=== PATIENT | female | born 1965 ===

== ENCOUNTER 2017-10-08 14:21 | Emergency (ER) | payer MEDICAID ==
[2017-10-08 14:31] VITALS: BP 129/85; PULSE 97; RESP 20; TEMP 98.1; O2SAT 99
--- NOTE | 2017-10-08 15:03 | ED PDOC ---
HPI: CCC, URI, Sore Throat Time Seen by Provider: 10/08/17 14:24 Chief Complaint (Nursing): ENT Problem Chief Complaint (Provider): ENT Problem History Per: Patient, Family (daughter) History/Exam Limitations: language barrier (greenlandic) Onset/Duration Of Symptoms: Persistent (x3 weeks) Current Symptoms Are (Timing): Still Present Additional Complaint(s): 52 year old female presents to the emergency department with family for an evaluation of left ear pain associated tinnitus and feeling of drainage ongoing for 3 weeks. Denied taking any medication for relief or seeking evaluation by another physician prior to ED visit. PMD: none provided Past Medical History Reviewed: Historical Data, Nursing Documentation, Vital Signs Vital Signs: Last Vital Signs Temp 98.1 F 10/08/17 14:27 Pulse 97 H 10/08/17 14:27 Resp 20 10/08/17 14:27 BP 129/85 10/08/17 14:27 Pulse Ox 99 10/08/17 15:12 - Medical History PMH: Anxiety, Depression, Gastritis Denies: Chronic Kidney Disease - Surgical History Surgical History: No Surg Hx - Family History Family History: States: Unknown Family Hx - Social History Current smoker - smoking cessation education provided: No Alcohol: None Drugs: Denies - Immunization History Hx Tetanus Toxoid Vaccination: Yes Hx Influenza Vaccination: No Hx Pneumococcal Vaccination: No - Home Medications Home Medications: Ambulatory Orders Medication Instructions Recorded Benztropine [Cogentin] 0.5 mg PO HS PRN #30 tab 05/04/16 Mirtazapine [Remeron] 30 mg PO HS #60 tab 05/04/16 Sertraline [Zoloft] 100 mg PO DAILY #60 tab 05/04/16 risperiDONE [RisperDAL Tab] 1 mg PO HS #30 tab 05/04/16 traZODone [Desyrel] 50 mg PO HS PRN #30 tab 05/04/16 Methylprednisolone [Medrol Dose 4 mg PO DAILY #21 mg 05/18/16 Pack (21 tabs)] Promethazine HCl/Codeine 5 ml PO HS #80 ml 05/18/16 [Prometh-Codein 6.25-10 mg/5 ml] Famotidine [Pepcid] 20 mg PO BID #20 tab 05/19/16 Fluticasone Nasal [Flonase] 1 actuation NS BID #1 bottle 05/19/16 Guaifenesin/Pseudoephedrne HCl 1 - 2 tab PO BID #20 ter 05/19/16 [Mucinex D 600 mg-60 mg] Fluticasone Nasal [Flonase] 0.05 mg NS DAILY #1 spr 10/31/16 Loratadine/Pseudoephedrine 1 each PO DAILY #20 tab.er.24h 10/31/16 [Claritin-D 24 Hour Tablet] Amoxicillin 875 mg PO BID #20 tab 10/08/17 - Allergies Allergies/Adverse Reactions: Allergies Allergy/AdvReac Type Severity Reaction Status Date / Time No Known Allergies Allergy Verified 05/18/16 13:39 Review of Systems ROS Statement: Except As Marked, All Systems Reviewed And Found Negative ENT: Positive for: Ear Pain (left-sided), Ear Discharge (left-sided), Other ( tinnitus) Physical Exam - Reviewed Nursing Documentation Reviewed: Yes Vital Signs Reviewed: Yes - Physical Exam Appears: Positive for: No Acute Distress Head Exam: Positive for: ATRAUMATIC, NORMAL INSPECTION, NORMOCEPHALIC Skin: Positive for: Normal Color. Negative for: Pallor Eye Exam: Positive for: Normal appearance, EOMI, PERRL ENT: Positive for: Normal ENT Inspection, TM Is/Are (clear in left ear). Negative for: Other (left ear erythema or edema) Neurologic/Psych: Positive for: Alert, Oriented - ECG O2 Sat by Pulse Oximetry: 99 (RA) Pulse Ox Interpretation: Normal Medical Decision Making Medical Decision Making: Initial Impression: Ear pain Time: 1507 --Upon provider evaluation, patient is medically stable and requires no further treatment in the ED at this time. Patient will be discharged home with Rx for Augmentin 875mg. Counseling was provided and all questions were answered regarding diagnosis and need for follow up with ENT specialists. There is agreement to discharge plan. Return if symptoms persist or worsen. Clinical Impression: Left ear pain Scribe Attestation: Documented by Zully Paz, acting as a scribe for Michelle Sprague PA-C. Provider Scribe Attestation: All medical record entries made by the Scribe were at my direction and personally dictated by me. I have reviewed the chart and agree that the record accurately reflects my personal performance of the history, physical exam, medical decision making, and the department course for this patient. I have also personally directed, reviewed, and agree with the discharge instructions and disposition. Disposition - Clinical Impression Clinical Impression: Left ear pain - Patient ED Disposition Is Patient to be Admitted: No Counseled Patient/Family Regarding: Diagnosis, Need For Followup - Disposition Referrals: Inder Deutsch MD [Staff Provider] - Emmett Russell MD [Staff Provider] - FAMILY PROVIDER,NO [Primary Care Provider] - Disposition: Routine/Home Disposition Time: 15:07 Condition: STABLE Prescriptions: Amoxicillin 875 mg PO BID #20 tab Forms: [employer] (Malian), [facility] ED School/Work Excuse Print Language: TURKMEN
== END 2017-10-08 15:12 | disposition home or self-care (01) ==
LOC: SUPCPDRO 14:21 → H.ER 14:21
DX: H92.02 Otalgia, left ear (principal); F32.9 Major depressive disorder, single episode, unspecified; F41.9 Anxiety disorder, unspecified

== ENCOUNTER 2018-03-16 14:37 | Emergency (ER) | payer SELFPAY ==
[2018-03-16 14:45] VITALS: BMI 34.3
--- NOTE | 2018-03-16 15:13 | ED PDOC ---
HPI: General Adult Time Seen by Provider: 03/16/18 14:53 Chief Complaint (Nursing): ENT Problem Chief Complaint (Provider): ENT Problem History Per: Patient History/Exam Limitations: no limitations Onset/Duration Of Symptoms: Days (x2) Current Symptoms Are (Timing): Still Present Additional Complaint(s): 52 year old female presents to the ED for evaluation of frontal sinus pain and pressure, and the sensation of clogged bilateral ears for the last two days. Patient otherwise denies fever, chills, cough, and sore throat. PMD: none provided Past Medical History Reviewed: Historical Data, Nursing Documentation, Vital Signs Vital Signs: Last Vital Signs Temp 98.5 F 03/16/18 14:45 Pulse 93 H 03/16/18 14:45 Resp 20 03/16/18 14:45 BP 115/79 03/16/18 14:45 Pulse Ox 98 03/16/18 15:25 - Medical History PMH: Anxiety, Depression, Gastritis Denies: Chronic Kidney Disease - Surgical History Surgical History: No Surg Hx - Family History Family History: States: Unknown Family Hx - Immunization History Hx Tetanus Toxoid Vaccination: Yes Hx Influenza Vaccination: No Hx Pneumococcal Vaccination: No - Home Medications Home Medications: Ambulatory Orders Medication Instructions Recorded Benztropine [Cogentin] 0.5 mg PO HS PRN #30 tab 05/04/16 Mirtazapine [Remeron] 30 mg PO HS #60 tab 05/04/16 Sertraline [Zoloft] 100 mg PO DAILY #60 tab 05/04/16 risperiDONE [RisperDAL Tab] 1 mg PO HS #30 tab 05/04/16 traZODone [Desyrel] 50 mg PO HS PRN #30 tab 05/04/16 Methylprednisolone [Medrol Dose 4 mg PO DAILY #21 mg 05/18/16 Pack (21 tabs)] Promethazine HCl/Codeine 5 ml PO HS #80 ml 05/18/16 [Prometh-Codein 6.25-10 mg/5 ml] Famotidine [Pepcid] 20 mg PO BID #20 tab 05/19/16 Fluticasone Nasal [Flonase] 1 actuation NS BID #1 bottle 05/19/16 Guaifenesin/Pseudoephedrne HCl 1 - 2 tab PO BID #20 ter 05/19/16 [Mucinex D 600 mg-60 mg] Fluticasone Nasal [Flonase] 0.05 mg NS DAILY #1 spr 10/31/16 Loratadine/Pseudoephedrine 1 each PO DAILY #20 tab.er.24h 10/31/16 [Claritin-D 24 Hour Tablet] Amoxicillin 875 mg PO BID #20 tab 10/08/17 Carbamide Peroxide [Debrox] 15 ml OT BID #1 drops 03/16/18 Methylprednisolone [Medrol Dose 4 mg PO DAILY #21 mg 03/16/18 Pack (21 tabs)] - Allergies Allergies/Adverse Reactions: Allergies Allergy/AdvReac Type Severity Reaction Status Date / Time No Known Allergies Allergy Verified 05/18/16 13:39 Review of Systems ROS Statement: Except As Marked, All Systems Reviewed And Found Negative Constitutional: Negative for: Fever, Chills ENT: Positive for: Nose Pain (frontal sinus pain and pressure), Other (clogged sensation to bilateral ears). Negative for: Throat Pain Respiratory: Negative for: Cough Physical Exam - Reviewed Nursing Documentation Reviewed: Yes Vital Signs Reviewed: Yes - Physical Exam Appears: Positive for: No Acute Distress Head Exam: Positive for: ATRAUMATIC, NORMOCEPHALIC Skin: Positive for: Normal Color, Warm, Dry Eye Exam: Positive for: Normal appearance ENT: Positive for: TM Is/Are (left TM: not visualized due to cerumen impaction; right TM: unremarkable), Sinus Pain/Drainage (frontal and ethmoid sinus tenderness). Negative for: Pharyngeal Erythema, Tonsillar Swelling Neck: Positive for: Normal, Painless ROM, Supple Cardiovascular/Chest: Positive for: Regular Rate, Rhythm Respiratory: Positive for: Normal Breath Sounds. Negative for: Accessory Muscle Use, Respiratory Distress Neurologic/Psych: Positive for: Alert, Oriented (x3). Negative for: Motor/ Sensory Deficits - ECG O2 Sat by Pulse Oximetry: 98 (RA) Pulse Ox Interpretation: Normal Medical Decision Making Medical Decision Making: Time: 1514 Initial Impression: sinusitis, cerumen impaction Initial Plan: --At this time, patient requires no treatment in the ED. Scribe Attestation: Documented by Destinee Duckworth, acting as a scribe for Heike Villanueva PA-C. Provider Scribe Attestation: All medical record entries made by the Scribe were at my direction and personally dictated by me. I have reviewed the chart and agree that the record accurately reflects my personal performance of the history, physical exam, medical decision making, and the department course for this patient. I have also personally directed, reviewed, and agree with the discharge instructions and disposition. Disposition - Clinical Impression Clinical Impression: Sinusitis, Cerumen impaction - Patient ED Disposition Is Patient to be Admitted: No - Disposition Disposition: Routine/Home Disposition Time: 15:29 Condition: STABLE Prescriptions: Carbamide Peroxide [Debrox] 15 ml OT BID #1 drops Methylprednisolone [Medrol Dose Pack (21 tabs)] 4 mg PO DAILY #21 mg Instructions: Sinusitis in Adults, Ear Wax Impaction Forms: [employer] (Cameroonian) Print Language: ARMENIAN
[2018-03-16 17:35] VITALS: BP 122/70; PULSE 78; RESP 18; TEMP 98.1; O2SAT 100
== END 2018-03-16 17:34 | disposition home or self-care (01) ==
LOC: H.ER 14:37
DX: J32.9 Chronic sinusitis, unspecified (principal); H61.22 Impacted cerumen, left ear; F41.9 Anxiety disorder, unspecified; F32.9 Major depressive disorder, single episode, unspecified

== ENCOUNTER 2018-06-13 12:10 | Emergency (ER) | payer MEDICAID ==
[2018-06-13 12:10] VITALS: BMI 34.3
[2018-06-13 12:20] VITALS: RESP 18
--- NOTE | 2018-06-13 13:22 | ED PDOC ---
HPI: General Adult Time Seen by Provider: 06/13/18 13:20 Chief Complaint (Nursing): ENT Problem Chief Complaint (Provider): Left Earache History Per: Patient History/Exam Limitations: no limitations Onset/Duration Of Symptoms: Days (x3) Current Symptoms Are (Timing): Still Present Additional Complaint(s): 53 year old female with PMH anxiety presents to the ED for evaluation of a left sided earache for three days after water being exposed to the ear and "getting stuck", per patient. Reports taking Tylenol with no relief, last dose 0800 this morning. Otherwise, denies other complaints, changes in hearing, tinnitus, vertigo fever, chills, headache, sore throat, dizziness, vision changes N/V, and abdominal pain. PMD: none provided Past Medical History Reviewed: Historical Data, Nursing Documentation, Vital Signs Vital Signs: Last Vital Signs Temp 98.4 F 06/13/18 12:19 Pulse 101 H 06/13/18 12:19 Resp 18 06/13/18 12:19 BP 139/91 H 06/13/18 12:19 Pulse Ox 96 06/13/18 12:19 - Medical History PMH: Anxiety, Depression, Gastritis Denies: Chronic Kidney Disease - Surgical History Surgical History: No Surg Hx - Family History Family History: States: Unknown Family Hx - Social History Current smoker - smoking cessation education provided: Yes (light) Alcohol: None Drugs: Denies - Immunization History Hx Tetanus Toxoid Vaccination: Yes Hx Influenza Vaccination: No Hx Pneumococcal Vaccination: No - Home Medications Home Medications: Ambulatory Orders Medication Instructions Recorded Benztropine [Cogentin] 0.5 mg PO HS PRN #30 tab 05/04/16 Mirtazapine [Remeron] 30 mg PO HS #60 tab 05/04/16 Sertraline [Zoloft] 100 mg PO DAILY #60 tab 05/04/16 risperiDONE [RisperDAL Tab] 1 mg PO HS #30 tab 05/04/16 traZODone [Desyrel] 50 mg PO HS PRN #30 tab 05/04/16 Methylprednisolone [Medrol Dose 4 mg PO DAILY #21 mg 05/18/16 Pack (21 tabs)] Promethazine HCl/Codeine 5 ml PO HS #80 ml 05/18/16 [Prometh-Codein 6.25-10 mg/5 ml] Famotidine [Pepcid] 20 mg PO BID #20 tab 05/19/16 Fluticasone Nasal [Flonase] 1 actuation NS BID #1 bottle 05/19/16 Guaifenesin/Pseudoephedrne HCl 1 - 2 tab PO BID #20 ter 05/19/16 [Mucinex D 600 mg-60 mg] Fluticasone Nasal [Flonase] 0.05 mg NS DAILY #1 spr 10/31/16 Loratadine/Pseudoephedrine 1 each PO DAILY #20 tab.er.24h 10/31/16 [Claritin-D 24 Hour Tablet] Amoxicillin 875 mg PO BID #20 tab 10/08/17 Carbamide Peroxide [Debrox] 15 ml OT BID #1 drops 03/16/18 Methylprednisolone [Medrol Dose 4 mg PO DAILY #21 mg 03/16/18 Pack (21 tabs)] Ofloxacin Otic 0.3% [Floxin 0.3% 10 drop TOP DAILY 7 Days #1 bottle 06/13/18 Otic Soln] - Allergies Allergies/Adverse Reactions: Allergies Allergy/AdvReac Type Severity Reaction Status Date / Time No Known Allergies Allergy Verified 06/13/18 12:19 Review of Systems ROS Statement: Except As Marked, All Systems Reviewed And Found Negative Constitutional: Negative for: Fever, Chills Eyes: Negative for: Vision Change ENT: Positive for: Ear Pain (left). Negative for: Nose Pain, Nose Discharge, Nose Congestion, Mouth Pain, Mouth Swelling, Throat Pain, Throat Swelling Cardiovascular: Negative for: Chest Pain, Palpitations Respiratory: Negative for: Cough, Shortness of Breath Gastrointestinal: Negative for: Abdominal Pain Musculoskeletal: Negative for: Neck Pain, Shoulder Pain, Arm Pain Skin: Negative for: Rash Neurological: Negative for: Weakness, Numbness, Headache, Dizziness Psych: Positive for: Anxiety Physical Exam - Reviewed Nursing Documentation Reviewed: Yes Vital Signs Reviewed: Yes - Physical Exam Appears: Positive for: No Acute Distress Head Exam: Positive for: ATRAUMATIC, NORMOCEPHALIC Skin: Positive for: Normal Color, Warm, Dry Eye Exam: Positive for: Normal appearance ENT: Positive for: Pharynx Is (unremarkable), TM Is/Are (normal), Hearing Is (intact), Other (tenderness to palpation of left tragus and when pulling of the pinna; no mastoid tenderness; left ear canal erythematous with small amounts of purulent material; left eardrum unremarkable; right ear unremarkable). Negative for: Sinus Pain/Drainage, Nasal Congestion Neck: Positive for: Normal, Painless ROM, Supple Cardiovascular/Chest: Positive for: Regular Rate, Rhythm Respiratory: Positive for: Normal Breath Sounds. Negative for: Respiratory Dist ress Pulses-Radial (L): 2+ Pulses-Radial (R): 2+ Lymphatic: Positive for: Adenopathy (mildly tender left under ear) Neurologic/Psych: Positive for: Alert, waxer tender II-XII (intact), Oriented (x3), Gait (steady). Negative for: Motor/Sensory Deficits - ECG O2 Sat by Pulse Oximetry: 96 (RA) Pulse Ox Interpretation: Normal Medical Decision Making Medical Decision Making: Time: 1328 Initial Impression: ear infection Initial Plan: --Patient to be sent home with scripts and advised to follow up if symptoms do not improve or new symptoms arise. Pt is croatian speaking. Triage notes describes pain as a throat pain; however upon pt interview and physical exam, patient is complaining of left ear pain. Plan of care discussed with patient, and strict instructions given regarding prescriptions, importance of follow up, and signs to return to Emergency Department, to include hearing loss, worsening ear pain, headache, vision changes, fever, chills, or any other new/worsening symptoms. Patient verbalizes understanding of discussion. Patient A&Ox3, ambulating with steady gait, stable for discharge home. Impression: Otitis Externa Plan: * Ofloxacin drops * ENT followup for persistent pain * Followup with primary doctor/clinic within 2 days * Return to ER for new/worsening symptoms Scribe Attestation: Documented by Destinee Duckworth, acting as a scribe for Luz Elena Wheeler PA-C Provider Scribe Attestation: All medical record entries made by the Scribe were at my direction and personally dictated by me. I have reviewed the chart and agree that the record accurately reflects my personal performance of the history, physical exam, medical decision making, and the department course for this patient. I have also personally directed, reviewed, and agree with the discharge instructions and disposition. Disposition - Clinical Impression Clinical Impression: Otitis externa - Disposition Referrals: [facility] [Outside] Inder Deutsch MD [Staff Provider] - Disposition Time: 13:45 Condition: GOOD Additional Instructions: Use gotas para los odos - 10 gotas en el odo doloroso magno vez al da edgar 7 fontenot Seguimiento con ENT para el dolor persistente. Seguimiento con clnica o mdico primario en 2 fontenot. Volver a la august de emergencias para los sntomas nuevos / que empeoran Prescriptions: Ofloxacin Otic 0.3% [Floxin 0.3% Otic Soln] 10 drop TOP DAILY 7 Days #1 bottle Instructions: Outer Ear Infection (DC) Forms: [employer] (Amharic), [facility] ED School/Work Excuse Print Language: BELGIAN
[2018-06-13 14:48] VITALS: BP 142/92; PULSE 88; TEMP 97.9
[2018-06-15 02:56] VITALS: O2SAT 96
== END 2018-06-13 14:50 | disposition home or self-care (01) ==
LOC: H.ER 12:10
DX: H60.92 Unspecified otitis externa, left ear (principal)

== ENCOUNTER 2018-11-08 00:43 | Emergency (ER) | payer SELFPAY ==
[2018-11-08 00:44] VITALS: BMI 34.3
[2018-11-08 01:27] VITALS: BP 122/82; PULSE 80; RESP 16; TEMP 97.5; O2SAT 97
--- NOTE | 2018-11-08 02:39 | ED PDOC ---
Upper Extremity Pain/Injury Time Seen by Provider: 11/08/18 02:00 Chief Complaint (Nursing): Finger,Hand,&Wrist Chief Complaint (Provider): ring stuck History Per: Patient History/Exam Limitations: no limitations Onset/Duration Of Symptoms: Hrs Current Symptoms Are (Timing): Still Present Additional Complaint(s): 53 y/o female presents for evaluation of ring stuck on right finger x 3 hours. Patient states ring is too small to begin with,and that because of her job hands swell up now and then. Denies trauma, numbness/weakness right upper extremity, limitation of movement. Past Medical History Reviewed: Historical Data, Nursing Documentation, Vital Signs Vital Signs: Last Vital Signs Temp 97.5 F L 11/08/18 01:23 Pulse 80 11/08/18 01:23 Resp 16 11/08/18 01:23 BP 122/82 11/08/18 01:23 Pulse Ox 97 11/08/18 01:23 - Medical History PMH: Anxiety, Depression, Gastritis Denies: Chronic Kidney Disease - Family History Family History: States: Unknown Family Hx - Immunization History Hx Tetanus Toxoid Vaccination: Yes Hx Influenza Vaccination: No Hx Pneumococcal Vaccination: No - Home Medications Home Medications: Ambulatory Orders Medication Instructions Recorded Benztropine [Cogentin] 0.5 mg PO HS PRN #30 tab 05/04/16 Mirtazapine [Remeron] 30 mg PO HS #60 tab 05/04/16 Sertraline [Zoloft] 100 mg PO DAILY #60 tab 05/04/16 risperiDONE [RisperDAL Tab] 1 mg PO HS #30 tab 05/04/16 traZODone [Desyrel] 50 mg PO HS PRN #30 tab 05/04/16 Methylprednisolone [Medrol Dose 4 mg PO DAILY #21 mg 05/18/16 Pack (21 tabs)] Promethazine HCl/Codeine 5 ml PO HS #80 ml 05/18/16 [Prometh-Codein 6.25-10 mg/5 ml] Famotidine [Pepcid] 20 mg PO BID #20 tab 05/19/16 Fluticasone Nasal [Flonase] 1 actuation NS BID #1 bottle 05/19/16 Guaifenesin/Pseudoephedrne HCl 1 - 2 tab PO BID #20 ter 05/19/16 [Mucinex D 600 mg-60 mg] Fluticasone Nasal [Flonase] 0.05 mg NS DAILY #1 spr 10/31/16 Loratadine/Pseudoephedrine 1 each PO DAILY #20 tab.er.24h 10/31/16 [Claritin-D 24 Hour Tablet] Amoxicillin 875 mg PO BID #20 tab 10/08/17 Carbamide Peroxide [Debrox] 15 ml OT BID #1 drops 03/16/18 Methylprednisolone [Medrol Dose 4 mg PO DAILY #21 mg 03/16/18 Pack (21 tabs)] Ofloxacin Otic 0.3% [Floxin 0.3% 10 drop TOP DAILY 7 Days #1 bottle 06/13/18 Otic Soln] - Allergies Allergies/Adverse Reactions: Allergies Allergy/AdvReac Type Severity Reaction Status Date / Time No Known Allergies Allergy Verified 06/13/18 12:19 Review of Systems ROS Statement: Except As Marked, All Systems Reviewed And Found Negative Musculoskeletal: Positive for: Hand Pain (right 4th digit swelling) Physical Exam - Reviewed Nursing Documentation Reviewed: Yes Vital Signs Reviewed: Yes - Physical Exam Appears: Positive for: Well, Non-toxic, No Acute Distress Pulses-Radial (L): 2+ Pulses-Radial (R): 2+ Extremity: Positive for: Normal ROM, Swelling (swelling distal to ring on right hand 4th digit, skin soft. FROM. Distal NV/motor intact. Cap refill <3 sec) Neurological/Psych: Positive for: Awake, Alert, Oriented (x3) - ECG O2 Sat by Pulse Oximetry: 97 - Progress ED Course And Treament: Multiple attempts made to cut through ring using ring cutter without success at fully cutting through one edge [employer] at bedside; able to cut through ring but not able to pry it apart enough to remove it Patient was instructed to go home, ice, and elevate finger until swelling goes down and then remove ring Return precautions given; including numbness/discoloration to finger, worsening swelling Disposition - Clinical Impression Clinical Impression: Tight ring on finger - Patient ED Disposition Is Patient to be Admitted: No Counseled Patient/Family Regarding: Diagnosis, Need For Followup - Disposition Referrals: [facility] [Outside] Disposition: Routine/Home Disposition Time: 05:30 Condition: STABLE Instructions: Swollen Joints Forms: [employer] (Barbadian)
== END 2018-11-08 06:55 | disposition home or self-care (01) ==
LOC: H.ER 00:43
DX: S60.444A External constriction of right ring finger, initial encounter (principal); W49.04XA Ring or other jewelry causing external constriction, initial encounter; Y92.89 Other specified places as the place of occurrence of the external cause